=== PATIENT | female | born 1955 | race African-American/Black ===

== ENCOUNTER 2017-05-08 18:22 | Inpatient (IN) | payer OTHER ==
[~2017-05-08] VITALS: Ht 152.4 cm; Wt 65.8 kg
[~2017-05-08 18:22] MED LIST: CLON0.2T PO; GABA-531 PO; GLIM4TAB2 PO; HYDR-4133 PO; LISI40TA4 PO; POTA10TA11 PO; WARF7.5T7 PO
[2017-05-08] MEDS ORDERED: ONDANSETRON HCL 4MG/2ML VIAL IV STA (18:57)
[2017-05-08] MEDS ORDERED: MORPHINE SULFATE 4 MG/ML CPJ (NOT FOR IM USE) IV STA (18:57)
[2017-05-08 19:21] LABS: HEMATOCRIT. 33.1 % (36.0-48.0); HEMOGLOBIN. 10.1 g/dL (12.0-16.0); MEAN CORPUSCULAR HEMOGLOBIN 26.4 pg (28.0-32.0); MEAN CORPUSCULAR VOLUME 86.3 fL (81.0-99.0); MEAN PLATELET VOLUME 10.5 fl (7.4-10.4); PLATELET 300 x1000/uL (130-400); RED BLOOD CELL COUNT 3.83 mill/uL (4.2-5.4); RED CELL DISTRIBUTION WIDTH 18.2 % (11.6-14.6)
[2017-05-08 19:30] LABS: D-DIMER 0.46 mg/L FEU (<0.50); PARTIAL THROMBOPLASTIN TIME 29.2 sec (23.4-31.0); PROTHROMBIN TIME 21.4 sec (9.4-11.6)
[2017-05-08 19:41] LABS: CARBON DIOXIDE 12 mEq/L (21-32); CHLORIDE 92 mEq/L (98-107)
[2017-05-08 19:43] LABS: CLARITY URINE CLEAR (CLEAR); COLOR URINE YELLOW (YELLOW); GLUCOSE URINE 3+ (NEGATIVE); KETONES URINE 2+ (NEGATIVE); LEUKOCYTE ESTERASE URINE NEGATIVE (NEGATIVE); NITRITE URINE NEGATIVE (NEGATIVE); OCCULT BLOOD URINE NEGATIVE (NEGATIVE); PROTEIN URINE NEGATIVE (NEGATIVE); SPECIFIC GRAVITY URINE 1.027 (1.005-1.030); UROBILINOGEN URINE 0.2 E.U./dL (0.2-1.0)
[2017-05-08 19:45] LABS: TROPONIN I 0.57 ng/mL (0.00-0.04)
[2017-05-08] MEDS ORDERED: SODIUM CHLORIDE 0.9% 1,000 ML IV ONE (19:49)
[2017-05-08] MEDS ORDERED: ONDANSETRON HCL 4MG/2ML VIAL IV ONE (20:00)
[2017-05-08 20:33] LABS: PLATELET ESTIMATE NORMAL
[2017-05-08] MEDS ORDERED: ENOXAPARIN 60MG/0.6ML SYR SUBCUT ONE (20:45)
[2017-05-08] MEDS ORDERED: INSULIN REGULAR (DRIP) 100 UNITS in SODIUM CHLORIDE 0.9% 99 ML IV SCH (20:45)
[2017-05-08 21:08] LABS: BG BASE EXCESS -14.5 mmol/L (-2.0-2.0); BG CARBOXYHEMOGLOBIN 0.1 % (0.5-1.5); BG FRACTION INSPIRED OXYGEN 21; BG HCO3 ACT 11.3 mmol/L (22.0-26.0); BG METHEMOGLOBIN 0.2 % (0.0-1.5); BG OXYHEMOGLOBIN 95.7 % (94.0-97.0); BG PCO2 26.5 mmHg (35.0-45.0); BG PH 7.246 (7.350-7.450); BG PO2 96.6 mmHg (75.0-100.0); BG SAMPLE SITE RIGHT BRACHIAL; BG TOTAL HEMOGLOBIN 10.9 g/dL (12.0-18.0); BG VENT MODE ROOM AIR
[2017-05-08] MEDS ORDERED: METOCLOPRAMIDE HCL 10MG/2ML VIAL IV ONE (21:45)
[2017-05-08 23:38] VITALS: BP 137/92
[2017-05-08] MEDS: BLOOD SUGAR DIAGNOSTIC STRIP TEST SCH (23:55)
[2017-05-09] VITALS (31 sets, daily range): BP systolic 109–185; BP diastolic 26–161
[2017-05-09] MEDS ORDERED: DEXTROSE 50% WATER 50ML SYRINGE IV PRN ×2
[2017-05-09] MEDS ORDERED: SODIUM CHLORIDE 0.9% 1,000 ML IV SCH (00:30)
[2017-05-09] MEDS ORDERED: METOCLOPRAMIDE HCL 10MG/2ML VIAL IV PRN (00:30)
[2017-05-09] MEDS ORDERED: NITROGLYCERIN 0.4MG TABLET SL SL PRN (00:30)
[2017-05-09] MEDS ORDERED: METOCLOPRAMIDE HCL 10MG/2ML VIAL IV SCH (01:00)
[2017-05-09] MEDS: BLOOD SUGAR DIAGNOSTIC STRIP TEST SCH ×13 (01:07→21:18)
[2017-05-09] MEDS: ONDANSETRON HCL 4MG/2ML VIAL IV PRN ×2 (01:19→20:02)
[2017-05-09] MEDS: INSULIN REGULAR (DRIP) 100 UNITS in SODIUM CHLORIDE 0.9% 100 ML IV SCH ×2 (01:34→03:12)
[2017-05-09 03:07] LABS: BASOPHILS % 0.4 % (0.0-2.0); HEMATOCRIT. 27.9 % (36.0-48.0); HEMOGLOBIN. 8.8 g/dL (12.0-16.0); LYMPHOCYTES % 8.7 % (20.0-50.0); MEAN CORPUSCULAR VOLUME 81.9 fL (81.0-99.0); MEAN PLATELET VOLUME 9.5 fl (7.4-10.4); MONOCYTES % 3.6 % (2.0-8.0); NEUTROPHILS % 87.3 % (40.0-76.0); PLATELET 275 x1000/uL (130-400); RED CELL DISTRIBUTION WIDTH 17.6 % (11.6-14.6)
[2017-05-09 03:25] LABS: CARBON DIOXIDE 22 mEq/L (21-32); CHLORIDE 105 mEq/L (98-107); CREATINE KINASE 143 IU/L (26-192); CREATINE KINASE MB FRACTION 5.9 ng/mL (0.5-3.6); HDL CHOLESTEROL 73 mg/dL (40-59); LDL CHOLESTEROL 134 mg/dL (5-100)
[2017-05-09 04:00] LABS: TROPONIN I 0.83 ng/mL (0.00-0.04)
[2017-05-09] MEDS ORDERED: DEXT 5%/0.9% NACL 1,000 ML IV SCH (05:15)
[2017-05-09] MEDS ORDERED: INSLIS (06:29)
[2017-05-09] MEDS ORDERED: B50 (06:29)
[2017-05-09] MEDS ORDERED: OMEP40CA34 PO (06:29)
[2017-05-09] MEDS ORDERED: PANT40TA4 PO (06:29)
[2017-05-09] MEDS ORDERED: CLOT15CR2 (06:29)
[2017-05-09] MEDS ORDERED: LEVO50TA8 PO (06:29)
[2017-05-09] MEDS ORDERED: HYDR25TA PO (06:29)
[2017-05-09] MEDS ORDERED: [UNRECOGNIZED DRUG - CODE] (06:29)
[2017-05-09] MEDS ORDERED: FOLI-43 (06:29)
[2017-05-09] MEDS ORDERED: PANTOPRAZOLE SODIUM 40 MG/VIAL IV SCH (09:00)
[2017-05-09] MEDS ORDERED: ENOXAPARIN 40MG/0.4ML SYR SUBCUT SCH (09:00)
[2017-05-09] MEDS: ASPIRIN 81MG TABLET PO SCH (09:07)
[2017-05-09] MEDS: FAMOTIDINE 20MG/2ML VIAL IV SCH (09:07)
[2017-05-09] MEDS: METOCLOPRAMIDE HCL 10MG/2ML VIAL IV PRN ×3 (09:52→23:23)
[2017-05-09] MEDS ORDERED: INSULIN DETEMIR UD 100 UNITS/ML SYR SUBCUT SCH (12:30)
[2017-05-09 13:15] LABS: CREATINE KINASE MB FRACTION 6.6 ng/mL (0.5-3.6)
[2017-05-09 13:19] LABS: TROPONIN I 1.2 ng/mL (0.00-0.04)
[2017-05-09] MEDS ORDERED: HYDRALAZINE HCL 10MG TABLET PO SCH (14:00)
[2017-05-09] MEDS: HYDRALAZINE HCL 25MG TABLET PO SCH ×2 (14:00→21:20)
[2017-05-09] MEDS: NITROGLYCERIN OINT 1GM/INCH UDPKT TD SCH ×2 (15:10→20:12)
[2017-05-09] MEDS: SODIUM CHLORIDE 0.45% 1,000 ML IV SCH (15:10)
[2017-05-09] MEDS ORDERED: WARFARIN SODIUM 7.5MG TABLET PO SCH (18:00)
[2017-05-09] MEDS: GABAPENTIN 300MG CAPSULE PO SCH (18:38)
[2017-05-09] MEDS: INSULIN LISPRO 100 UNITS/ML SUBCUT SCH ×2 (18:39→21:00)
[2017-05-10] VITALS (26 sets, daily range): BP systolic 141–187; BP diastolic 75–101
[2017-05-10] MEDS: NITROGLYCERIN OINT 1GM/INCH UDPKT TD SCH ×6 (00:22→21:50)
[2017-05-10] MEDS: ONDANSETRON HCL 4MG/2ML VIAL IV PRN ×2 (02:48→20:26)
[2017-05-10] MEDS: SODIUM CHLORIDE 0.45% 1,000 ML IV SCH ×3 (02:50→21:55)
[2017-05-10] MEDS: HYDRALAZINE HCL 25MG TABLET PO SCH ×3 (05:20→21:50)
[2017-05-10] MEDS: BLOOD SUGAR DIAGNOSTIC STRIP TEST SCH ×4 (05:32→21:51)
[2017-05-10] MEDS: LEVOTHYROXINE SODIUM 50MCG TABLET PO SCH (06:23)
[2017-05-10] MEDS: METOCLOPRAMIDE HCL 10MG/2ML VIAL IV PRN ×2 (06:23→17:44)
[2017-05-10 07:24] LABS: INR 1.5; PROTHROMBIN TIME 15.8 sec (9.4-11.6)
[2017-05-10 08:12] LABS: BASOPHILS % 0.3 % (0.0-2.0); EOSINOPHILS % 0.4 % (0.0-5.0); HEMATOCRIT. 28.3 % (36.0-48.0); HEMOGLOBIN. 9.2 g/dL (12.0-16.0); LYMPHOCYTES % 10.9 % (20.0-50.0); MEAN CORPUSCULAR HEMOGLOBIN 26.4 pg (28.0-32.0); MEAN CORPUSCULAR VOLUME 81.4 fL (81.0-99.0); MEAN PLATELET VOLUME 9.8 fl (7.4-10.4); MONOCYTES % 3.7 % (2.0-8.0); NEUTROPHILS % 84.7 % (40.0-76.0); PLATELET 242 x1000/uL (130-400); RED BLOOD CELL COUNT 3.48 mill/uL (4.2-5.4); RED CELL DISTRIBUTION WIDTH 17.3 % (11.6-14.6)
[2017-05-10 08:14] LABS: CARBON DIOXIDE 26 mEq/L (21-32); CHLORIDE 102 mEq/L (98-107)
[2017-05-10] MEDS: INSULIN LISPRO 100 UNITS/ML SUBCUT SCH ×4 (08:18→21:00)
[2017-05-10] MEDS: ASPIRIN 81MG TABLET PO SCH (08:20)
[2017-05-10] MEDS: FAMOTIDINE 20MG/2ML VIAL IV SCH ×2 (08:20→20:12)
[2017-05-10] MEDS: GABAPENTIN 300MG CAPSULE PO SCH ×3 (08:20→16:49)
[2017-05-10] MEDS ORDERED: ENOXAPARIN 30MG/0.3ML SYR SUBCUT SCH (09:00)
[2017-05-10] MEDS: INSULIN DETEMIR UD 100 UNITS/ML SYR SUBCUT SCH (09:33)
[2017-05-10] MEDS: MORPHINE SULFATE 2 MG/ML CPJ (NOT FOR IM USE) IV PRN (11:58)
[2017-05-10] MEDS ORDERED: LIDOCAINE HCL 1% 20ML VIAL (Pyxis) INJ ONE (14:26)
[2017-05-10] MEDS ORDERED: IOHEXOL-300 100 ML BOTTLE ONE (14:42)
[2017-05-10] MEDS ORDERED: MIDAZOLAM HCL 2 MG/2 ML VIAL ONE (14:45)
[2017-05-10] MEDS ORDERED: FENTANYL CITRATE/PF 50MCG/ML 2ML VIAL ONE (14:45)
[2017-05-10] MEDS ORDERED: ONDANSETRON HCL 4MG/2ML VIAL ONE (14:48)
[2017-05-10] MEDS ORDERED: LABETALOL HCL 5MG/ML VIAL 20ML IV ONE (15:06)
[2017-05-10] MEDS ORDERED: ATROPINE SULFATE 1MG/10ML SYR IV PRN (15:15)
[2017-05-10] MEDS: METOPROLOL TARTRATE 50MG TABLET PO SCH (20:13)
[2017-05-11] VITALS (7 sets, daily range): BP systolic 94–180; BP diastolic 47–102
[2017-05-11] MEDS: MORPHINE SULFATE 2 MG/ML CPJ (NOT FOR IM USE) IV PRN (00:04)
[2017-05-11] MEDS: NITROGLYCERIN OINT 1GM/INCH UDPKT TD SCH ×4 (02:06→11:25)
[2017-05-11] MEDS: BLOOD SUGAR DIAGNOSTIC STRIP TEST SCH ×2 (06:50→11:17)
[2017-05-11] MEDS: HYDRALAZINE HCL 25MG TABLET PO SCH (06:50)
[2017-05-11] MEDS: LEVOTHYROXINE SODIUM 50MCG TABLET PO SCH (06:57)
[2017-05-11 07:08] LABS: BASOPHILS % 0.3 % (0.0-2.0); EOSINOPHILS % 0.1 % (0.0-5.0); HEMATOCRIT. 30.8 % (36.0-48.0); HEMOGLOBIN. 9.9 g/dL (12.0-16.0); LYMPHOCYTES % 7.4 % (20.0-50.0); MEAN CORPUSCULAR HEMOGLOBIN 26.9 pg (28.0-32.0); MEAN CORPUSCULAR VOLUME 83.4 fL (81.0-99.0); MEAN PLATELET VOLUME 10.2 fl (7.4-10.4); MONOCYTES % 5.6 % (2.0-8.0); NEUTROPHILS % 86.6 % (40.0-76.0); PLATELET 225 x1000/uL (130-400); RED BLOOD CELL COUNT 3.69 mill/uL (4.2-5.4); RED CELL DISTRIBUTION WIDTH 17.6 % (11.6-14.6)
[2017-05-11 07:15] LABS: CHLORIDE 93 mEq/L (98-107)
[2017-05-11] MEDS: INSULIN LISPRO 100 UNITS/ML SUBCUT SCH ×2 (07:21→12:25)
[2017-05-11 07:23] LABS: CARBON DIOXIDE 20 mEq/L (21-32)
[2017-05-11] MEDS: METOPROLOL TARTRATE 50MG TABLET PO SCH (08:44)
[2017-05-11] MEDS: GABAPENTIN 300MG CAPSULE PO SCH ×2 (08:44→12:27)
[2017-05-11] MEDS: FAMOTIDINE 20MG/2ML VIAL IV SCH (08:44)
[2017-05-11] MEDS: ASPIRIN 81MG TABLET PO SCH (08:44)
[2017-05-11] MEDS ORDERED: AMLO10TA4 PO (10:27)
[2017-05-11] MEDS ORDERED: CLONIDINE 0.1MG TABLET PO SCH (10:30)
[2017-05-11] MEDS ORDERED: AMLODIPINE 10MG TABLET PO SCH (10:30)
[2017-05-11] MEDS: INSULIN DETEMIR UD 100 UNITS/ML SYR SUBCUT SCH (11:16)
[2017-05-11] MEDS: ONDANSETRON HCL 4MG/2ML VIAL IV PRN (11:23)
== END 2017-05-11 13:43 | disposition home or self-care (01) | DRG 190 ==
LOC: ER 20:42 → EDBEDREQSVC 20:50 → EDBEDREQ 20:50 → EDBEDREQTM 20:50 → CVICU 21:00 → EDBEDREQTM 21:13 → EDBEDREQ 21:13 → ENRESERV 21:26 → CVICU 23:48 → 3WST 05-09 22:23
PROVIDERS: ADMIT Hospitalist; ATTEND Hospitalist
PROC: 30233L1 Transfusion of Nonautologous Fresh Plasma into Peripheral Vein, Percutaneous Approach (ICD-10-PCS; 2017-05-09)
PROC: 30233K1 Transfusion of Nonautologous Frozen Plasma into Peripheral Vein, Percutaneous Approach (ICD-10-PCS; 2017-05-09)
PROC: 4A023N7 Measurement of Cardiac Sampling and Pressure, Left Heart, Percutaneous Approach (ICD-10-PCS; principal; 2017-05-10)
PROC: B2111ZZ Fluoroscopy of Multiple Coronary Arteries using Low Osmolar Contrast (ICD-10-PCS; 2017-05-10)
PROC: B2151ZZ Fluoroscopy of Left Heart using Low Osmolar Contrast (ICD-10-PCS; 2017-05-10)
DX: I21.4 Non-ST elevation (NSTEMI) myocardial infarction (principal); N17.0 Acute kidney failure with tubular necrosis; E13.10 Other specified diabetes mellitus with ketoacidosis without coma; I13.0 Hypertensive heart and chronic kidney disease with heart failure and stage 1 through stage 4 chronic kidney disease, or unspecified chronic kidney disease; R65.10 Systemic inflammatory response syndrome (SIRS) of non-infectious origin without acute organ dysfunction; I50.9 Heart failure, unspecified; E87.5 Hyperkalemia; E86.0 Dehydration; I25.110 Atherosclerotic heart disease of native coronary artery with unstable angina pectoris; E78.5 Hyperlipidemia, unspecified; D64.9 Anemia, unspecified; N18.9 Chronic kidney disease, unspecified; Z79.4 Long term (current) use of insulin; Z95.5 Presence of coronary angioplasty implant and graft; I25.2 Old myocardial infarction; Z79.01 Long term (current) use of anticoagulants; Z85.3 Personal history of malignant neoplasm of breast; Z86.711 Personal history of pulmonary embolism; Z88.5 Allergy status to narcotic agent; Z88.6 Allergy status to analgesic agent; Z88.8 Allergy status to other drugs, medicaments and biological substances; Z91.018 Allergy to other foods; Z79.899 Other long term (current) drug therapy; Z90.10 Acquired absence of unspecified breast and nipple
CPT/HCPCS: 36415; 36600; 71010; 80048; 80053; 80061; 81001; 82010; 82375; 82550; 82553; 82805; 82962; 83690; 83880; 84443; 84484; 85025; 85379; 85610; 85730; 86850; 86900; 86927; 93005; 93306; 93458; 96361; 96372; 96374; 96375; 99291; A6261; C1760; C1769; C1887; C1893; J1644; J1650; J1815; J2250; J2270; J2405; J2765; J3010; J3490; J7030; J7042; J7050; P9017; Q9967

== ENCOUNTER 2020-07-10 16:58 | Emergency (ER) | payer OTHER ==
[~2020-07-10] VITALS: Ht 152.4 cm; Wt 65.0 kg
[~2020-07-10 16:58] MED LIST changes: +AMLO10TA4 PO; +B50; +CLOT15CR2; +FOLI-43; -GLIM4TAB2 PO; +GLIM4TAB36 PO; +HYDR25TA PO; +INSLIS; +LEVO50TA8 PO; +OMEP40CA12 PO; +PANT40TA4 PO; +[UNRECOGNIZED DRUG - CODE]
[2020-07-10] MEDS ORDERED: IBUPROFEN 600MG TABLET PO ONE (19:45)
[2020-07-10 20:09] VITALS: BP 135/85
== END 2020-07-10 20:14 | disposition left against medical advice (07) ==
LOC: ER 16:58
DX: S39.012A Strain of muscle, fascia and tendon of lower back, initial encounter (principal); S80.01XA Contusion of right knee, initial encounter; W01.0XXA Fall on same level from slipping, tripping and stumbling without subsequent striking against object, initial encounter; Y93.89 Activity, other specified; Y92.89 Other specified places as the place of occurrence of the external cause; Y99.8 Other external cause status; E11.9 Type 2 diabetes mellitus without complications; I10 Essential (primary) hypertension; I25.2 Old myocardial infarction; Z85.9 Personal history of malignant neoplasm, unspecified; Z79.4 Long term (current) use of insulin; Z79.899 Other long term (current) drug therapy; Z88.5 Allergy status to narcotic agent
CPT/HCPCS: 71101; 72100; 73562; 99284